=== PATIENT | female | born 1970 | race Caucasian/White ===

== ENCOUNTER → 2019-12-13 08:39 | Outpatient (CLI) | payer MEDICARE ==
[~2019-12-13] VITALS: Ht 154.9 cm; Wt 62.1 kg
[2019-12-13 13:30] VITALS: Ht 154.9 cm; Wt 62.1 kg
== END | disposition home or self-care (01) ==
LOC: D.FANS 11-23 09:00
PROVIDERS: ATTEND Family Medicine
DX: E66.3 Overweight (principal)